=== PATIENT | male | born 1960 | race Caucasian/White ===

== ENCOUNTER 2021-12-06 06:12 | Emergency (ER) | payer BC, SELFPAY ==
--- NOTE | 2021-12-06 07:11 | RAD REPORT ---
EXAM DESCRIPTION: CT - Ct Stroke Brain Wo Cont - 12/06/2021 6:44 am CLINICAL HISTORY: WEAKNESS COMPARISON: <Comparisons> TECHNIQUE: Axial 5 millimeter thick images of the head were obtained without IV contrast. All CT scans are performed using dose optimization technique as appropriate and may include automated exposure control or mA/KV adjustment according to patient size. FINDINGS: No intracranial hemorrhage, mass, or cerebral edema. No acute infarction identifiable. No extra-axial fluid collections. Fleming matter-white matter differentiation is preserved. Visualized portions of the mastoid air cells, paranasal sinuses, and orbits are unremarkable. Findings telephoned to Dr. Magana 7:04 a.m. IMPRESSION: No CT evidence of acute intracranial process.
[2021-12-06 07:48] LABS: Absolute Lymphocytes (CBC) 2.7 K/uL (0.7-4.9); Hematocrit 44.9 % (39.6-49.0); Lymphocytes % 25.7 % (15.3-44.8); MPV 6.8 fL (7.6-11.3); RBC Red Blood Cell Count 4.69 M/uL (4.33-5.43)
[2021-12-06 07:50] LABS: Urine Blood Trace-intact (Negative); Urine Glucose Negative (Negative); Urine Protein Negative (Negative)
[2021-12-06 07:51] LABS: Protime INR 0.98
[2021-12-06 08:14] LABS: ALT/SGPT 28 U/L (12-78); AST/SGOT 26 U/L (15-37); Alkaline Phosphatase 65 U/L (45-117); BUN Blood Urea Nitrogen 11 mg/dL (7-18); Bicarbonate 24 mmol/L (21-32); Bilirubin Direct 0.1 mg/dL (0-0.2); Bilirubin Total 0.6 mg/dL (0.2-1.0); Glucose Level 82 mg/dL (74-106); Magnesium 2.2 mg/dL (1.8-2.4); NT PRO-BNP 22 pg/mL (<125); Potassium 4.1 mmol/L (3.5-5.1); Protein, Total 7.6 g/dL (6.4-8.2); Sodium Level 139 mmol/L (136-145)
[2021-12-06 08:20] LABS: Urine Bacteria NONE SEEN /HPF (NONE SEEN); Urine RBC <5 /HPF (NONE SEEN)
--- NOTE | 2021-12-06 08:32 | ER ---
Nurse's Notes [facility] Name: Jeremy Franco Age: 61 yrs Sex: Male : 1960 Arrival Date: 12/06/2021 Time: 06:20 Bed 18 Private MD: Diagnosis: Other specified anxiety disorders Presentation: 12/06 07:02 Chief complaint: Patient states: +hypertension. Bilateral hand numbness. difficulty sv1 walking. Coronavirus screen: Client denies travel out of the [place] in the last 14 days. Ebola Screen: No symptoms or risks identified at this time. Initial Sepsis Screen: Does the patient meet any 2 criteria? No. Patient's initial sepsis screen is negative. Does the patient have a suspected source of infection? No. Patient's initial sepsis screen is negative. Risk Assessment: Do you want to hurt yourself or someone else? Patient reports no desire to harm self or others. Onset of symptoms was December 06, 2021 at 04:30. 07:02 Method Of Arrival: EMS: [facility] sv1 07:02 Acuity: ARACELIS 2 sv1 Triage Assessment: 07:02 General: Appears distressed, uncomfortable. Pain: Complains of pain in face, scalp, sv1 right hand and left hand. Historical: - Allergies: 07:58 PENICILLINS; eo2 07:58 Levaquin; eo2 - Home Meds: 07:58 None [Active]; eo2 - PMHx: 07:58 Hypertensive disorder; eo2 - PSHx: 07:58 Appendectomy; collapsed lung; eo2 - Immunization history:: Client reports having NOT received the Covid vaccine. Last tetanus immunization: up to date. - Social history:: Smoking status: Patient reports the use of cigarette tobacco products. Screenin:14 Abuse screen: Denies threats or abuse. Nutritional screening: No deficits noted. sv1 Tuberculosis screening: No symptoms or risk factors identified. Fall Risk None identified. Assessment: 07:53 General: Appears in no apparent distress. comfortable, Behavior is calm, cooperative. eo2 07:56 Neuro: Level of Consciousness is awake, alert, obeys commands, Oriented to person, eo2 place, time, situation, Moves all extremities. Speech is normal, Facial symmetry appears normal, Reports dizziness, now resolved numbness in b/l hands, now resolved. Cardiovascular: Denies chest pain, shortness of breath, Capillary refill < 3 seconds. Respiratory: Airway is patent Trachea midline Respiratory effort is even, unlabored, Breath sounds are clear bilaterally. Denies shortness of breath. GI: No deficits noted. No signs and/or symptoms were reported involving the gastrointestinal system. : No deficits noted. No signs and/or symptoms were reported regarding the genitourinary system. Vital Signs: 07:02 BP 193 / 106 LA Supine (auto/reg); Pulse 100 MON; Resp 20; Temp 98.9; Pulse Ox 95% ; sv1 Weight 72.12 kg; Height 5 ft. 7 in. (170.18 cm); Pain 0/10; 07:45 BP 144 / 82; Pulse 84; Resp 15; Pulse Ox 97% ; Pain 0/10; eo2 08:54 BP 159 / 87; Pulse 88; Resp 15; Pulse Ox 97% ; Pain 0/10; eo2 07:02 Body Mass Index 24.90 (72.12 kg, 170.18 cm) sv1 Vitals: 07:45 Cardiac Rhythm Assessment Regular Sinus rhythm. eo2 ED Course: 06:20 Patient arrived in ED. mw2 06:44 CT-STROKE BRAIN W/O CONTRAST CT In Process Unspecified. EDMS 06:50 Rey Bah MD is Attending Physician. mh7 07:00 Inserted saline lock: 20 gauge in right forearm, using aseptic technique. eo2 07:02 Ghulam Huang, KARAN is Primary Nurse. sv1 07:02 Arm band placed on left wrist. sv1 07:06 Attending Physician role handed off by Rey Bah MD sp3 07:06 Hong Magana MD is Attending Physician. sp3 07:10 Triage completed. sv1 07:14 Patient has correct armband on for positive identification. Bed in low position. sv1 07:35 XRAY Chest (1 view) In Process Unspecified. EDMS 07:45 claim administrator on. Pulse ox on. NIBP on. Door closed. Noise minimized. eo2 07:45 No provider procedures requiring assistance completed. Inserted. eo2 07:53 Urine Drug Screen Sent. eo2 07:53 Urine Microscopic Only Sent. eo2 07:53 Basic Metabolic Panel Sent. eo2 07:53 LFT's Sent. eo2 07:53 Magnesium Sent. eo2 07:53 NT PRO-BNP Sent. eo2 08:54 IV discontinued, intact. eo2 Administered Medications: No medications were administered Outcome: 08:31 Discharge ordered by . sp3 08:54 Discharged to home ambulatory. eo2 08:54 Discharged to home ambulatory, with family. 08:54 Condition: stable 08:54 Discharge instructions given to patient, Instructed on discharge instructions, follow up and referral plans. Demonstrated understanding of instructions, follow-up care. 08:56 Patient left the ED. eo2 Signatures: Dispatcher [employer] EDNY Katelyn Gonzalez mw2 Rey Bah MD MD mh7 Hong Magana MD MD sp3 Ghulam Huang RN RN sv1 Soraya Avila RN RN eo2 Corrections: (The following items were deleted from the chart) 07:58 07:53 General: Appears in no apparent distress. comfortable, Behavior is calm, eo2 cooperative, eo2 08:00 07:58 Allergies: No Known Allergies; eo2 eo2
--- NOTE | 2021-12-06 08:32 | EDPHYS ---
Physician Documentation [facility] Name: Jeremy Franco Age: 61 yrs Sex: Male : 1960 Arrival Date: 12/06/2021 Time: :20 Bed 18 Private MD: ED Physician Hong Magana HPI: 12/06 06:54 This 61 yrs old Male presents to ER via Unassigned with complaints of Dizziness. mh7 06:54 The patient presents with dizziness, feeling faint, lightheadedness. Onset: The mh7 symptoms/episode began/occurred today. Context: occurred at work, occurred while the patient was sitting, just prior to the episode the patient experienced no apparent symptoms. Modifying factors: The symptoms are alleviated by nothing, the symptoms are aggravated by standing up. Associated signs and symptoms: Pertinent positives: numbness, tingling, Of hands, Pertinent negatives: abdominal pain, agitation, ataxia, blurred vision, chest pain, combativeness, confusion, diaphoresis, focal weakness, head injury, headache, nausea, palpitations, seizure, shortness of breath, syncope, vomiting. Severity of symptoms: At their worst the symptoms were moderate today, in the emergency department the symptoms have improved moderately. Patient's baseline: Neuro: alert and fully oriented, Motor: no deficits, Ambulation: walks without assistance, Speech: normal. Historical: - Allergies: 07:58 PENICILLINS; eo2 07:58 Levaquin; eo2 - Home Meds: 07:58 None [Active]; eo2 - PMHx: 07:58 Hypertensive disorder; eo2 - PSHx: 07:58 Appendectomy; collapsed lung; eo2 - Immunization history:: Client reports having NOT received the Covid vaccine. Last tetanus immunization: up to date. - Social history:: Smoking status: Patient reports the use of cigarette tobacco products. ROS: 06:54 Constitutional: Negative for fever, chills, and weight loss, Eyes: Negative for injury, mh7 pain, redness, and discharge, ENT: Negative for injury, pain, and discharge, Neck: Negative for injury, pain, and swelling, Cardiovascular: Negative for chest pain, palpitations, and edema, Respiratory: Negative for shortness of breath, cough, wheezing, and pleuritic chest pain, Abdomen/GI: Negative for abdominal pain, nausea, vomiting, diarrhea, and constipation, Back: Negative for injury and pain, : Negative for injury, bleeding, discharge, and swelling, MS/Extremity: Negative for injury and deformity, Skin: Negative for injury, rash, and discoloration. 06:54 Psych: Negative for depression, anxiety, suicide ideation, homicidal ideation, and hallucinations, Allergy/Immunology: Negative for hives, rash, and allergies, Endocrine: Negative for neck swelling, polydipsia, polyuria, polyphagia, and marked weight changes, Hematologic/Lymphatic: Negative for swollen nodes, abnormal bleeding, and unusual bruising. 06:54 Neuro: Negative for altered mental status, gait disturbance, headache, hearing loss, loss of consciousness, seizure activity, speech changes, syncope, visual changes, weakness. Exam: 06:54 Head/Face: Normocephalic, atraumatic. Eyes: Pupils equal round and reactive to light, mh7 extra-ocular motions intact. Lids and lashes normal. Conjunctiva and sclera are non-icteric and not injected. Cornea within normal limits. Periorbital areas with no swelling, redness, or edema. Neck: Trachea midline, no thyromegaly or masses palpated, and no cervical lymphadenopathy. Supple, full range of motion without nuchal rigidity, or vertebral point tenderness. No Meningismus. Chest/axilla: Normal chest wall appearance and motion. Nontender with no deformity. No lesions are appreciated. Cardiovascular: Regular rate and rhythm with a normal S1 and S2. No gallops, murmurs, or rubs. Normal PMI, no JVD. No pulse deficits. Respiratory: Lungs have equal breath sounds bilaterally, clear to auscultation and percussion. No rales, rhonchi or wheezes noted. No increased work of breathing, no retractions or nasal flaring. Abdomen/GI: Soft, non-tender, with normal bowel sounds. No distension or tympany. No guarding or rebound. No evidence of tenderness throughout. Back: No spinal tenderness. No costovertebral tenderness. Full range of motion. Skin: Warm, dry with normal turgor. Normal color with no rashes, no lesions, and no evidence of cellulitis. MS/ Extremity: Pulses equal, no cyanosis. Neurovascular intact. Full, normal range of motion. Psych: Awake, alert, with orientation to person, place and time. Behavior, mood, and affect are within normal limits. 06:54 Constitutional: The patient appears in no acute distress, alert, awake, anxious. 07:01 Neuro: Orientation: is normal, Mentation: is normal, Memory: is normal, Cranial nerves: mh7 grossly normal, Cerebellar function: is grossly normal, Motor: strength is normal, Sensation: is normal, Gait: not tested. seizure activity, is not displayed by the patient, Abnormal movements: there are no abnormal movements. Vital Signs: 07:02 BP 193 / 106 LA Supine (auto/reg); Pulse 100 MON; Resp 20; Temp 98.9; Pulse Ox 95% ; sv1 Weight 72.12 kg; Height 5 ft. 7 in. (170.18 cm); Pain 0/10; 07:45 BP 144 / 82; Pulse 84; Resp 15; Pulse Ox 97% ; Pain 0/10; eo2 08:54 BP 159 / 87; Pulse 88; Resp 15; Pulse Ox 97% ; Pain 0/10; eo2 07:02 Body Mass Index 24.90 (72.12 kg, 170.18 cm) sv1 MDM: 07:01 Transition of care: After a detail discussion of the patient's case, care is mh7 transferred to Hong Magana MD. 07:35 Data reviewed: vital signs, nurses notes. ED course: I have seen and examined this sp3 patient that was endorsed to me by Dr. Bah from the night time nanny. Patient describes generalized anxiety, lip tingling, bilateral hands tingling which have all resolved at this time. Patient does have a history of anxiety attack in the past. Patient denies chest pain, shortness of breath, headache, neck pain, weakness, or any other symptoms at this time. Patient does feel like he is back to his normal self. CT scan of the head is negative. Labs are pending but at this time I do not believe patient has acute coronary syndrome spectrum, infection/sepsis, CVA, any other critical diagnoses at this time. Patient is advised to return at any time if he has chest pain, shortness of breath, or worsening symptoms. Pending negative work-up, patient will be discharged with follow-up to his primary care physician.. 08:31 Patient medically screened. sp3 12/06 06:53 Order name: Basic Metabolic Panel; Complete Time: 08:30 mh7 12/06 06:53 Order name: CBC with Diff; Complete Time: 08:01 [facility] 12/06 06:53 Order name: LFT's; Complete Time: 08:30 7 12/06 06:53 Order name: Magnesium; Complete Time: 08:30 7 12/06 06:53 Order name: NT PRO-BNP; Complete Time: 08:30 7 12/06 06:53 Order name: PT-INR; Complete Time: 08:01 [facility] 12/06 06:37 Order name: CT-STROKE BRAIN W/O CONTRAST CT; Complete Time: 07:19 lp1 12/06 06:53 Order name: Troponin HS; Complete Time: 08:30 7 12/06 06:53 Order name: XRAY Chest (1 view) [facility] 12/06 06:53 Order name: Urine Drug Screen [facility] 12/06 06:53 Order name: Urine Microscopic Only; Complete Time: 08:30 7 12/06 06:53 Order name: ETOH Level; Complete Time: 08:01 [facility] 12/06 06:54 Order name: Phosphorus; Complete Time: 08:30 7 12/06 07:50 Order name: Urine Dipstick-Ancillary; Complete Time: 08:01 [facility] 12/06 06:53 Order name: Cardiac monitoring; Complete Time: 07:53 7 12/06 06:53 Order name: EKG - Nurse/Tech; Complete Time: 07:53 7 12/06 06:53 Order name: IV Saline Lock; Complete Time: 07:53 7 12/06 06:53 Order name: Labs collected and sent; Complete Time: 07:53 [facility] 12/06 06:53 Order name: O2 Per Protocol; Complete Time: 07:53 [facility] 12/06 06:53 Order name: O2 Sat Monitoring; Complete Time: 07:53 7 12/06 06:53 Order name: Urine Dipstick-Ancillary (obtain specimen); Complete Time: 07:53 7 Administered Medications: No medications were administered Disposition Summary: 12/06/21 08:31 Discharge Ordered Location: Home sp3 Condition: Stable sp3 Diagnosis - Other specified anxiety disorders sp3 Followup: sp3 - With: Private Physician - When: Upon discharge from the Emergency Department - Reason: Recheck today's complaints Discharge Instructions: - Discharge Summary Sheet sp3 - Managing Anxiety, Adult sp3 Forms: - Medication Reconciliation Form sp3 - Thank You Letter sp3 - Antibiotic Education sp3 - Prescription Opioid Use sp3 Signatures: Dispatcher [employer] Rey Eddy MD MD mh7 Hong Magana MD MD sp3 Ghulam Huang RN RN sv1 Soraya Avila RN RN eo2 Corrections: (The following items were deleted from the chart) 08:00 07:58 Allergies: No Known Allergies; eo2 eo2 08:54 06:53 Orthostatics ordered. 7 eo2
--- NOTE | 2021-12-06 08:54 | RAD REPORT ---
EXAM DESCRIPTION: RAD - Chest Single View - 12/06/2021 7:35 am CLINICAL HISTORY: Dizziness, Stroke protocol chest film COMPARISON: None TECHNIQUE: AP portable chest image was obtained 12/06/2021 7:35 am . FINDINGS: Lungs are clear. Heart and vasculature are normal. No measurable pleural effusion and no p neumothorax. No acute bony abnormality seen. No acute aortic findings suspected. IMPRESSION: No acute cardiopulmonary process.
[2021-12-06 09:08] VITALS: TEMP 98.9
[2021-12-06 09:10] VITALS: O2SAT 97
[2021-12-06 09:11] VITALS: BP 159/87
[2021-12-06 09:30] LABS: Barbiturates NEGATIVE (NEGATIVE); Benzodiazepines NEGATIVE (NEGATIVE); Cocaine NEGATIVE (NEGATIVE); METHAMPHETAM NEGATIVE (NEGATIVE); Methadone NEGATIVE (NEGATIVE); Opiates NEGATIVE (NEGATIVE); THC Cannibis NEGATIVE (NEGATIVE)
[2021-12-06 09:34] LABS: Phencyclidine NEGATIVE (NEGATIVE)
== END 2021-12-06 08:56 | disposition home or self-care (01) ==
LOC: ER 06:12 → EDBD 06:12 → ER 08:56
DX: F41.8 Other specified anxiety disorders (principal); I10 Essential (primary) hypertension; Z72.0 Tobacco use
CPT/HCPCS: 36415; 70450; 71045; 80048; 80076; 80307; 80320; 81003; 81015; 83735; 83880; 84100; 84484; 85025; 85610; 99284